=== PATIENT | male | born 1960 | race African-American/Black ===

== ENCOUNTER 2023-06-24 21:24 | Emergency (ER) | payer OTHER ==
[~2023-06-24] VITALS: Ht 177.8 cm; Wt 89.4 kg
[2023-06-24 22:05] VITALS: BP 139/91; PULSE 88; RESP 18; TEMP 98; O2SAT 98
[2023-06-25] MEDS ORDERED: LIDOCAINE 5% 1 EA PATCH TP ONE (01:40)
[2023-06-25] MEDS ORDERED: KETOROLAC 30 MG/ML VIAL IM ONE (01:40)
[2023-06-25] MEDS ORDERED: CYCL-711 PO (02:47)
[2023-06-25] MEDS ORDERED: IBUP-2218 PO (02:47)
== END 2023-06-25 02:51 | disposition home or self-care (01) ==
LOC: MED 21:24
DX: S43.401A Unspecified sprain of right shoulder joint, initial encounter (principal); S73.101A Unspecified sprain of right hip, initial encounter; S13.4XXA Sprain of ligaments of cervical spine, initial encounter; E11.9 Type 2 diabetes mellitus without complications; Z79.899 Other long term (current) drug therapy; Z79.1 Long term (current) use of non-steroidal anti-inflammatories (NSAID); Z88.0 Allergy status to penicillin; Z86.73 Personal history of transient ischemic attack (TIA), and cerebral infarction without residual deficits; X58.XXXA Exposure to other specified factors, initial encounter; Y92.89 Other specified places as the place of occurrence of the external cause; Y93.89 Activity, other specified; Y99.0 Civilian activity done for income or pay
CPT/HCPCS: 73030; 73502; 96372; 99284; J1885